=== PATIENT | male | born 1945 | race Caucasian/White ===

== ENCOUNTER → 2020-11-18 | Outpatient (CLI) | payer OTHER ==
[~2020-11-18] VITALS: Ht 185.4 cm; Wt 104.3 kg
[~2020-11-18] MED LIST: ASA81BEC PO; CRESTOR20 MG PO; FLOMAX0.4 MG PO; KRILL OIL 1,001 EACH PO; MAGNESIUM GLYC120 MG PO; PRILOSEC OTC20 MG PO; PROSCAR 5MG TABL5 M1 PO; TURMERIC500 M2 PO; VITAMIN D3125 MC1 PO; ZINC GLUCONATE100 MG PO
--- NOTE | 2020-11-20 16:06 | PATH ---
[facility] [address] [place] [address] PATHOLOGY RPT PROCEDURE Name: JOHNY RECINOS Room #: REG [facility] [place].#: [id number] Admission: 11/18/20 Date of : 47 Discharge: Report #: [id number] Path Case #: [id number] [facility] Accession Number: [id number] . 01 Material submitted: . gastrointestinal site - ANTRUM BIOPSY . 01 Clinical history: . DTS/MISCELLANEOUS/SMALL BOWEL LESIONS/ABNORMAL CT EGD . 02 Diagnosis: Gastric mucosa, antrum, endoscopic biopsy: - Moderate reactive gastropathy. - Negative for intestinal metaplasia or atrophy. - Negative for Helicobacter pylori (properly controlled immunohistochemical stain performed). (IUV:jalil; 11/20/2020) QMS 11/20/2020 0929 Local . 02 Electronically signed: . Davida Burciaga MD, Pathologist NPI- [id number] . 01 Gross description: . The specimen is received in formalin, labeled "Johny Recinos", "antrum for H. pylori". Received are 2 segments of pale pedro soft tissue measuring 0.1 and 0.3 cm. The specimen is entirely submitted in cassette A1.(SNA; 11/19/2020) LO/PETEY 11/19/2020 0936 Local . 02 Pathologist provided ICD-10: K31.9 . 02 CPT . 378128, [id number] Specimen Comment: A courtesy copy of this report has been sent to [phone], [phone] Specimen Comment: [phone] Specimen Comment: Report sent to / DR SIDHU Performed at: [address] [id number] MD Danis Benítez MD Phone: [phone] Performed at: [address] [id number] [address] [address] PATHOLOGY RPT PROCEDURE Name: JOHNY RECINOS Room #: REG LEISA Hernandez#: [id number] Admission: 11/18/20 Date of : 47 Discharge: Report #: [id number] Path Case #: [id number] MD Davida Burciaga MD Phone: [phone]
== END | disposition home or self-care (01) ==
LOC: GI
PROVIDERS: ATTEND Internal Medicine Gastroenterology
DX: R93.3 Abnormal findings on diagnostic imaging of other parts of digestive tract (principal); K31.9 Disease of stomach and duodenum, unspecified; I10 Essential (primary) hypertension; K29.70 Gastritis, unspecified, without bleeding; E78.00 Pure hypercholesterolemia, unspecified; K21.9 Gastro-esophageal reflux disease without esophagitis; Z98.890 Other specified postprocedural states; Z79.899 Other long term (current) drug therapy; Z85.828 Personal history of other malignant neoplasm of skin
CPT/HCPCS: 62110; 62900